=== PATIENT | male | born 1985 | race Caucasian/White ===

== ENCOUNTER 2017-06-24 06:27 | Emergency (ER) | payer SELFPAY ==
[~2017-06-24] VITALS: Ht 170.2 cm; Wt 64.1 kg
[2017-06-24 06:30] VITALS: BP 134/79; PULSE 72; RESP 18; TEMP 97.8; O2SAT 98
[2017-06-24 06:37] VITALS: BP 134/79; PULSE 72; RESP 18; TEMP 97.8; O2SAT 98
--- NOTE | 2017-06-24 06:47 | PD ---
HPI Chief Complaint: ENT Complaint Time Seen by Provider: 06:46 Travel History International Travel<30 days: No Contact w/Intl Traveler<30days: No Traveled to known affect area: No History of Present Illness HPI 31-year-old male presents to the emergency department for complaint of 3 days of right ear pain and jaw pain. Patient notes that he has mandibular pain that radiates to the ear as well as primary right ear pain. No fever subjective chills have been noted. Pain is 7/10 in intensity and not responding to daily [id number] Excedrin. Patient does not voice any sinus pressure drainage or sore throat or neck pain. No productive cough. Patient is a tobacco smoker. Patient is unable to identify exacerbating or alleviating factors. No recent injury or fall. PFSH Past Medical History Medical History: Denies Significant Hx Diminished Hearing: No Tetanus Vaccination: < 5 Years Influenza Vaccination: No Past Surgical History Surgical History: No Previous Surgery Social History Alcohol Use: No Tobacco Use: Yes Substance Use: No Allergies-Medications (Allergen,Severity, Reaction): Coded Allergies: Iodine (Verified Allergy, Severe, Swelling, 06/24/17) Shellfish (Verified Allergy, Severe, Swelling, 06/24/17) Reported Meds & Prescriptions Reported Meds & Active Scripts Active No Active Prescriptions or Reported Medications Review of Systems Except as stated in HPI: all other systems reviewed are Neg General / Constitutional: Positive: Chills, No: Fever HENT: Positive: Congestion, Dental Difficulties, Earache, No: Neck Pain, Ear Discharge Cardiovascular: No: Chest Pain or Discomfort Respiratory: No: Shortness of Breath Gastrointestinal: No: Nausea, Vomiting Genitourinary: No: Flank Pain Musculoskeletal: No: Myalgias, Arthralgias Skin: No Rash Neurologic: No: Weakness Psychiatric: No: Anxiety Hematologic/Lymphatic: No: Lymph Node Enlargement Physical Exam Narrative GENERAL: Well-developed well-nourished male in no acute distress no respiratory distress but appears to have some discomfort. SKIN: Warm and dry. HEAD: Normocephalic. EYES: No scleral icterus. No injection or drainage. ENT: Airway is patent mucous membranes moist mild gingival edema into the buccal surface of the #31 tooth; right tympanic membrane red and dull without perforation external auditory canal no foreign body no edema erythema no tenderness to palpation postauricular or at the tragus. No facial edema. Left tympanic membrane no redness no dullness or loss of landmarks. NECK: Supple, trachea midline. No JVD or lymphadenopathy. No meningismus no nuchal rigidity. CARDIOVASCULAR: Regular rate and rhythm without murmurs, gallops, or rubs. RESPIRATORY: Breath sounds equal bilaterally. No accessory muscle use. GASTROINTESTINAL: Abdomen soft, non-tender, nondistended. MUSCULOSKELETAL: No cyanosis, or edema. BACK: Nontender without obvious deformity. No CVA tenderness. Data Data Last Documented VS Vital Signs Date Time Temp Pulse Resp B/P Pulse Ox O2 Delivery O2 Flow Rate FiO2 06/24/17 06:39 72 18 06/24/17 06:37 97.8 134/79 98 Orders Amoxicillin (Trimox) (06/24/17 07:00) Ibuprofen (Motrin) (06/24/17 07:00) Tramadol (Ultram) (06/24/17 07:00) [facility] Medical Decision Making Medical Screen Exam Complete: Yes Emergency Medical Condition: Yes Medical Record Reviewed: Yes Differential Diagnosis Otalgia, otitis externa, otitis media, sinusitis, dentalgia, dental abscess, dental fracture, dental caries, gingivitis Narrative Course Patient with red dull right tympanic membrane and mild dentalgia patient given first dose of oral antibiotic and pain medication the emergency department as needed is stable for outpatient management and follow-up with primary care provider. Diagnosis Primary Impression: Right otitis media Qualified Code: H65.191 - Other acute nonsuppurative otitis media of right ear , recurrence not specified Additional Impression: Dentalgia Referrals: Primary Care Physician call for appointment Patient Instructions: General Instructions Departure Forms: Tests/Procedures, Work Release Special Instructions: no work x 1 day Additional Instructions: Monitor temperature every 4 hours with thermometer take as needed acetaminophen/ Tylenol every 4 hours for fever 100.4 Fahrenheit or greater Complete course of antibiotic as prescribed May use [id number] Afrin nasal decongestant spray twice daily for up to 3 days avoid overuse to avoid rebound congestion May use ibuprofen/Motrin/Advil 600 mg as often as every 6 hours May take pain medication as prescribed as needed use with caution as may cause drowsiness, impaired judgment, delay reaction time, increased risk for fall; do not take this medication if driving handling heavy equipment or drinking alcoholic beverages No work times one day Med/Other Pt SpecificInfo: Prescription(s) given Scripts Tramadol 50 Mg Tab50 Mg PO Q6H PRN (PAIN) #5 TAB Ref 0 Prov:Inez Leal MD 06/24/17 Amoxicillin 500 Mg Mgg195 Mg PO TID 10 Days Ref 0 Prov:Inez Leal MD 06/24/17 Disposition: 01 DISCHARGE HOME Condition: Stable Inez Leal MD Jun 24, 2017 06:47
[2017-06-24] MEDS ORDERED: TRAM50TA PO (06:51)
[2017-06-24] MEDS ORDERED: AMOX500C PO (06:51)
[2017-06-24] MEDS ORDERED: AMOXICILLIN (TRIHYDRATE) 500 MG CAP PO ONE (07:00)
[2017-06-24] MEDS ORDERED: IBUPROFEN 600 MG TAB PO ONE (07:00)
[2017-06-24] MEDS ORDERED: traMADol HCL 50 MG TAB PO ONE (07:00)
== END 2017-06-24 07:20 | disposition home or self-care (01) ==
LOC: PHED 06:27
DX: H65.191 Other acute nonsuppurative otitis media, right ear (principal); Z72.0 Tobacco use
CPT/HCPCS: 99284